=== PATIENT | female | born 1950 | race Caucasian/White ===

== ENCOUNTER 2022-05-12 13:04 | Emergency (ER) | payer MEDICARE, SELFPAY ==
[2022-05-12] VITALS (20 sets, daily range): BP systolic 118–173; BP diastolic 66–100; PULSE 68–83; RESP 11–21; TEMP 36.3–36.8; O2SAT 95–100
--- NOTE | ~2022-05-12 | XR_ITS ---
EXAMINATION: XR chest 2V DATE: 05/12/2022 14:16 INDICATION: Chest pain TECHNIQUE: frontal and lateral views of the chest were obtained. COMPARISON: None FINDINGS: The lungs are clear with no focal airspace opacities, pulmonary edema, pleural effusion or pneumothor ax. Heart is normal caliber for AP technique. Small amount of gas within a small hiatal hernia. There are bridging osteophytes at multiple levels in the spine, consistent with diffuse idiopathic skeleta l hyperostosis (DISH). IMPRESSION: 1. No acute cardiopulmonary disease. 2. Small hiatal hernia. Reviewed, dictated and finalized at location A.
--- NOTE | 2022-05-12 13:06 | ECG_ITS ---
Measurements Intervals [place] Rate: 72 P: 64 FL: 143 QRS: -4 QRSD: 113 T: 33 QT: 375 QTc: 411 Interpretive Statements SINUS RHYTHM WITH SINUS ARRHYTHMIA INCOMPLETE RIGHT BUNDLE BRANCH BLOCK DELAYED PRECORDIAL R/S TRANSITION CONSIDER INFERIOR INFARCT, AGE INDETERMINATE BORDERLINE ST-T WAVE ABNORMALITY- HIGH LAT LEADS ABNORMAL ECG NO PREVIOUS ECG AVAILABLE FOR COMPARISON Electronically Signed On 05-12-2022 13:32:03 CDT by Ezra Crawley D.O.
--- NOTE | 2022-05-12 13:27 | ED.CHESTPAIN ---
HPI - Chest Pain General Chief Complaint: Chest Pain Stated Complaint: chest pain, blood in stool Time Seen by Provider: 05/12/22 13:27 Source: patient Mode of arrival: ambulatory Limitations: no limitations History of Present Illness HPI narrative: Patient is a 71-year-old female with a history of hypertension, hyperlipidemia, coronary artery disease, recent cardiac stenting at [facility] presenting to the emergency department for evaluation of chest pain, bright red blood per rectum. Patient states that she was shopping today when she noticed that she is having intermittent, sharp, stabbing left upper chest wall pain. No radiation of the pain to the back, neck, jaw, flank. No ripping or tearing sensation of the pain. No associated shortness of breath, nausea, vomiting or diaphoresis. Patient states that she then sat to rest, and then decide to go the bathroom where she noted she was having some hematuria or bright red bleeding per rectum. Pt states she is sure it is per rectum. Patient reports a history of massive GI bleed in the past. Patient denies current lightheadedness, dizziness, syncope. She was placed on Brilinta following her cardiac stenting procedure. Her physicians are on staff at [facility]. Related Data Allergies Allergy/AdvReac Type Severity Reaction Status Date / Time Penicillins Allergy Unknown Verified 05/02/12 14:00 Sulfa (Sulfonamide Allergy Unknown Verified 05/02/12 14:01 Antibiotics) Review of Systems Review of Systems: CONSTITUTIONAL: Denies fever, chills, or sweats. ENT: Denies rhinorrhea, congestion, sore throat, or otalgia. CARDIOVASCULAR: Denies current chest pain, palpitations, or edema. RESPIRATORY: Denies cough or dyspnea. GASTROINTESTINAL: Denies abdominal pain, nausea, vomiting, or diarrhea. Reports bright red blood per rectum. GENITOURINARY: Denies dysuria or hematuria. SKIN: Denies rash or itching. MUSCULOSKELETAL: Denies back pain, joint pain, or myalgia. NEUROLOGIC: Denies headache, numbness, or weakness. [facility] Family History Family History (Updated 04/08/16 @ 23:19 by DOCTOR UNKNOWN) Mother Hypertension Family history of coronary artery disease Father Family history of diabetes mellitus in first degree relative Social History Social History Smoking status: Never smoker Alcohol intake: never Exam Narrative: GENERAL: Awake, alert, conversant HEAD: Normocephalic, atraumatic. EYES: PERRLA and EOMI. ENT: Nares clear, no rhinorrhea or epistaxis. Mucous membranes moist. NECK: Supple. CHEST: No respiratory distress, breathing even and non labored HEART: Regular rate, sinus rhythm ABDOMEN:Non distended, non tender : Patient with bright red blood per rectum. No external hemorrhoids. No melanotic stool. EXTREMITIES: Normal range of motion. No edema. SKIN: Warm, dry, no rash. NEURO:No focal deficits. Alert and oriented x3 Course Vital Signs Vital signs: Vital Signs Temperature 36.8 C 05/12/22 13:14 Pulse Rate 81 05/12/22 13:14 Respiratory Rate 16 05/12/22 13:14 Blood Pressure 173/77 H 05/12/22 13:14 Pulse Oximetry 99 05/12/22 13:14 Oxygen Delivery Room Air 05/12/22 13:14 Temperature 36.3 C L 05/12/22 16:30 Pulse Rate 79 05/12/22 17:00 Respiratory Rate 14 05/12/22 17:00 Blood Pressure 118/66 05/12/22 16:30 Pulse Oximetry 99 05/12/22 17:00 Oxygen Delivery Room Air 05/12/22 13:35 MDM - Chest Pain MDM Narrative Medical decision making narrative: Patient presenting to the emergency department for evaluation of chest pain, bright red blood per rectum. At the time of assessment, ABCs are intact and vital signs are stable. Laboratory results are reassuring. No elevation in troponin. No significant anemia. Patient given the chest pain, and bleeding, did not want to pursue additional aspirin therapy and the chest pain is resolved at the time o
[2022-05-12 14:01] LABS: Basophils Percent Auto 0.6 % (0.2-1.2); Eosinophils Absolute Auto 0.1 K/mm3 (0-0.3); Eosinophils Percent Auto 1.1 % (0-4.4); Hematocrit 43.1 % (37.0-47.0); Hemoglobin 14.5 g/dL (12.0-15.0); Immature Granulocyte Absolute 0.02 K/mm3 (0.00-0.031); Immature Granulocyte Percent A 0.3 % (0-0.5); Lymphocytes Absolute Auto 1.88 K/mm3 (0.9-3.2); Lymphocytes Percent Auto 28.5 % (18.3-44.2); Mean Corpuscular HGB Conc 33.6 g/dl (32-36); Mean Corpuscular Hemoglobin 28.7 pg (26-34); Mean Corpuscular Volume 85.2 fl (80-100); Mean Platelet Volume 10.1 fl (7.4-10.4); Monocytes Absolute Auto 0.5 K/mm3 (0.1-0.6); Monocytes Percent Auto 7.3 % (2.6-8.5); Neutrophils Absolute Auto 4.1 K/mm3 (1.3-6.7); Neutrophils Percent Auto 62.2 % (45.5-73.1); Platelet Count Result 232 k/mm3 (150-375); Red Blood Count 5.06 M/mm3 (4.2-5.4); Red Cell Distribution Width 14.4 % (11.5-14.5); White Blood Count 6.6 K/mm3 (4.5-10.0)
[2022-05-12 14:13] LABS: Appearance Urine Cloudy (Clear); Bilirubin Urine Negative (Negative); Blood Urine Negative (Negative); Color Urine Yellow (Yellow); Glucose Urine UA Negative (Negative); Ketones Urine Trace mg/dL (Negative); Leukocyte Esterase Ur Negative LEU/UL (Negative); Nitrate Urine Negative (Negative); Protein Urine Negative (Negative); Urobilinogen Urine 0.2 mg/dL (<2.0); pH Urine 7.5 (5.0-9.0)
[2022-05-12 14:13] LABS: Alanine Aminotransferase 24 U/L (6-35); Albumin Level 4.3 g/dL (3.5-5.1); Alkaline Phosphatase 82 U/L (38-126); Anion Gap 11 mmol/L (8-16); Aspartate Amino Transferase 26 U/L (14-36); Bilirubin,Total 0.9 mg/dL (0.2-1.3); Blood Urea Nitrogen 13 mg/dL (7-17); Calcium 9.5 mg/dL (8.4-10.2); Carbon Dioxide 28 mmol/L (22-30); Chloride 94 mmol/L (98-107); Estimated Glomerular Filt Rate > 60; Glucose 94 mg/dL (65-110); Lipase 128 U/L (23-300); Potassium 3.4 mmol/L (3.4-5.0); Sodium 133 mmol/L (137-145)
[2022-05-12 14:14] LABS: INR 1.1; Prothrombin Time 13.5 Seconds (11.1-14.7)
[2022-05-12 14:15] LABS: Partial Thromboplastin Time 31.5 SECONDS (22.3-36.8)
[2022-05-12 14:23] LABS: Amorphous Sediment Urine Few; Mucus Urine Rare /lpf; RBC Urine 0-2 /hpf (0-2); Squamous Epithelial Cell Urine Rare /hpf (Few); WBC Urine 0-3 /hpf
[2022-05-12 14:25] LABS: Troponin I < 0.012 ng/mL (0.000-0.034)
[2022-05-12 14:26] LABS: Add Urine Microscopic? YES
[2022-05-12 16:38] LABS: SARS-CoV-2 RNA PCR Negative
[2022-05-12 17:37] LABS: Troponin I 0.156 ng/mL (0.000-0.034)
== END 2022-05-12 17:40 | disposition short-term general hospital (02) ==
PROVIDERS: Emergency Provider Emergency Medicine
DX: R07.89 Other chest pain (principal); K62.5 Hemorrhage of anus and rectum; R79.89 Other specified abnormal findings of blood chemistry; Z20.822 Contact with and (suspected) exposure to COVID-19; I10 Essential (primary) hypertension; E78.5 Hyperlipidemia, unspecified; I25.10 Atherosclerotic heart disease of native coronary artery without angina pectoris; Z95.5 Presence of coronary angioplasty implant and graft; K44.9 Diaphragmatic hernia without obstruction or gangrene; I45.10 Unspecified right bundle-branch block; R94.31 Abnormal electrocardiogram [ECG] [EKG]
CPT/HCPCS: 36415; 71046; 80053; 81001; 83690; 84484; 85025; 85610; 85730; 86850; 86900; 86901; 93005; 99285; C9803; U0003; U0005